=== PATIENT | female | born 1990 | race Caucasian/White ===

== ENCOUNTER 2018-02-17 20:48 | Emergency (ER) | payer OTHER, MEDICAID ==
--- NOTE | 2018-02-17 21:01 | EDPHY ---
H & P Stated Complaint: LEFT FOOT/ANKLE, TRAMPOLINE 6PM Time Seen by Provider: 02/17/18 21:00 HPI/ROS: HPI: This is a 27-year-old female who presents with Chief Complaint: LEFT FOOT/ANKLE, TRAMPOLINE 6PM Location: Left foot ankle Quality: Injury Duration: 3 hr prior to arrival Signs and Symptoms: No bleeding, no radiation, no numbness, no weakness, no tingling, no incontinence, + decreased range of motion, + swelling, + pain, no fever Timing: acute Severity: Moderate Context: Patient reports that she was jumping on the trampoline approximately 3 hr prior to arrival when her left foot hyperextended and curled up underneath her. She reports that she fell directly onto her left foot. She felt popping sensation in the medial ankle but reports pain in the lateral ankle at this time and swelling. She reports that pain is increased with weight-bearing. Prior history of ankle sprains. Denies radiation, weakness, paresthesias. Modifying Factors: None Comment: ROS: A comprehensive 10 system review of systems is otherwise negative aside from elements mentioned in the history of present illness. MEDICAL/SURGICAL/SOCIAL HISTORY: Medical history: depression and anxiety, ADHD, HORMONE HEADACHES, LMP 2-3 weeks ago. Surgical history: Appendectomy Social history: Former smoker. Denies alcohol and drug use. CONSTITUTIONAL: Polite and cooperative young adult white female, awake and alert, no obvious distress HEENT: Atraumatic and normocephalic. NECK: supple EXTREMITIES: 2/2 pulses, strength 5/5, left Ankle: Moderate lateral malleolus swelling; Plantar flexion to 50, dorsiflexion to 20. Foot inversion to 35 degree. No tenderness/swelling Anterior talofibular ligament. Moderate tenderness/swelling Calcaneofibular ligament, no tenderness/swelling posterior talofibular ligament, no tenderness/swelling posterior inferior tibiofibular ligament. Achilles tendon intact. DIP/PIP/MCP flexion/extension intact with good light touch sensation. no deformities, no clubbing, no cyanosis or edema. NEUROLOGICAL: no focal neuro deficits. GCS 15. Light touch sensation intact. SKIN: Warm and dry, no erythema. no rash. Good capillary refill. Source: Patient Exam Limitations: No limitations - Personal History LMP (Females 10-55): 15-21 Days Ago Current Tetanus/Diphtheria Vaccine: Yes - Medical/Surgical History Hx Asthma: No Hx Chronic Respiratory Disease: No Hx Diabetes: No Hx Cardiac Disease: No Hx Renal Disease: No Hx Cirrhosis: No Hx Alcoholism: No Hx HIV/AIDS: No Hx Splenectomy or Spleen Trauma: No Other PMH: hx of depression and anxiety, ADHD, APPY, HORMONE HEADACHES - Social History Smoking Status: Former smoker Constitutional: Initial Vital Signs Temperature (C) 36.5 C 02/17/18 20:53 Heart Rate 99 02/17/18 20:53 Respiratory Rate 18 02/17/18 20:53 Blood Pressure 118/78 02/17/18 20:53 O2 Sat (%) 98 02/17/18 20:53 O2 Delivery Mode Room Air Allergies/Adverse Reactions: codeine Allergy (Verified 02/17/18 20:53) Rash latex Allergy (Verified 02/17/18 20:53) Rash Home Medications: Medication Instructions Recorded Adderall 10 MG (*) 02/17/18 Ativan 02/17/18 oxyCODONE/APAP 5/325 [Percocet 1 - 2 tab PO Q4H PRN #10 tab 02/17/18 5/325 (*)] Medical Decision Making - Diagnostics Imaging Results: Imaging Impressions Ankle X-Ray 02/17/18 21:03 Impression: Essentially undisplaced left lateral malleolar fracture.. Left Foot, 3 Views Clinical Indications: Pain following trauma. Findings: No left foot is negative for fracture.. No periosteal reaction or erosion. No radiopaque foreign body. Joint spaces have normal thickness. Impression: Left foot negative for fracture. Foot X-Ray 02/17/18 21:03 Impression: Essentially undisplaced left lateral malleolar fracture.. Left Foot, 3 Views Clinical Indications: Pain following trauma. Findings: No left foot is negative for fracture.. No periosteal reaction or erosion. No radiopaque foreign body. Joint spaces have normal thickness. Impression: Left foot negative for fracture. Procedures: Procedure: Splint placement. A short-leg posterior/stirrup splint was applied the Emergency Room dental technician instructor. After application of the splint I returned and re-examined the patient. The splint was adequately immobilizing the joint and distal to the splint the patient's circulation and sensation was intact. ED Course/Re-evaluation: Left foot x-ray and the left ankle x-ray ordered Ice pack applied. Left ankle x-ray my read shows minimally displaced distal fibula fracture Placed in short-leg posterior/stirrup Ortho Glass, crutches provided, orthopedic follow-up Percocet prepack given No signs of neurovascular compromise/tenting of skin/compartment syndrome/ extremities and joints examined above and below area of concern and are neurovascularly intact. This patient was seen under the supervision of my secondary supervising physician. I evaluated care for this patient independently. Discussed this patient with Dr. Fernandez. Differential Diagnosis: Ankle injury differential diagnosis includes but is not limited to tibia fracture, fibula fracture, metatarsal fracture, LisFranc fracture, achilles tendon rupture, sprain. - Data Points Medications Given: Discontinued Medications Oxycodone/Acetaminophen (Percocet 5/325mg Prepack#4) 1 btl TAKEHOME EDNOW ONE Stop: 02/17/18 21:14 Last Admin: 02/17/18 21:20 Dose: Not Given Departure - Departure Disposition: Home, Routine, Self-Care Clinical Impression: Closed fracture of distal end of left fibula Qualifiers: Encounter type: initial encounter Fracture morphology: other fracture Qualified Code(s): S82.832A - Other fracture of upper and lower end of left fibula, initial encounter for closed fracture Condition: Good Instructions: Oxycodone/Acetaminophen (By mouth), Ankle Fracture (ED), Crutch Instructions (ED), External Fixation of an Ankle Fracture (DC) Additional Instructions: Keep the splint dry and in place until seen by Orthopedics. Use crutches to aid ambulation. Start with toe-touch weight-bearing status. Take Tylenol 650 mg every 4 hours and/or Ibuprofen 600 mg every 8 hours with food as needed for pain. Use Percocet every 6 hours as needed for severe/break through pain. Do not use Tylenol and Percocet concomitantly. Apply ice for 30 minutes at a time; 2-3 times per day for the next 1-2 days. Follow up with Orthopedics in 5-7 days at which time they will evaluate and recommend with you if conservative management versus surgery is indicated. Return to the ER immediately if you experience new or worsening pain, discoloration, numbness, tingling, or any other symptoms that concern you. Referrals: Lissett Arnold PA [Primary Care Provider] - As per Instructions Ta Tejada MD [Medical Doctor] - As per Instructions Prescriptions: oxyCODONE/APAP 5/325 [Percocet 5/325 (*)] 1 - 2 tab PO Q4H PRN #10 tab PRN Reason: Pain, Severe
[2018-02-17] MEDS ORDERED: OXYCODONE/APAP 5/325MG PREPACK#4 BTL TAKEHOME ONE (21:13)
[2018-02-17 22:08] VITALS: BP 122/80
== END 2018-02-17 22:05 | disposition home or self-care (01) ==
DX: S82.832A Other fracture of upper and lower end of left fibula, initial encounter for closed fracture (principal); F41.8 Other specified anxiety disorders; X58.XXXA Exposure to other specified factors, initial encounter; Y99.9 Unspecified external cause status; Z87.891 Personal history of nicotine dependence

== ENCOUNTER 2018-06-08 00:50 | Inpatient (IN) | payer OTHER, MEDICAID ==
[2018-06-08] MEDS ORDERED: OLANZapine DISINTEGR 5 MG TAB PO PRN (03:28)
[2018-06-08] MEDS ORDERED: MAGNESIUM HYDROXIDE 30 ML UDCUP PO PRN (03:28)
[2018-06-08] MEDS ORDERED: MAG HYDROX/AL HYDROX/SIMETH 30 ML UDCUP PO PRN (03:28)
[2018-06-08] MEDS ORDERED: LORazepam 0.5 MG TAB PO PRN (03:28)
[2018-06-08] MEDS ORDERED: ACETAMINOPHEN 325 MG TAB PO PRN (03:28)
[2018-06-08] MEDS ORDERED: NICOTINE POLACRILEX 2 MG GUM B PRN (03:28)
--- NOTE | 2018-06-08 08:44 | ASMTBHMTP ---
Master Treatment Plan Master Treatment Plan Answers: Mood Instability without for: Psychosis Date: 06/08/2018 Diagnosis on Admission: Bi polar I Expected length of stay: 3-5 Reason for admission: Notes: Per ED report: " 27 y.o. female presented to the ED by EMS for evaluation of "not feeling safe". Pt. was sent here for medical clearance presumably to be sent to inpatient psychiatric care. Was placed on a mental health hold today by her primary psychiatrist after she was despondent and unable to answer questions at P office". Patient's stated presenting problems: Notes: "Mypsychiatristput me on a hold because I didn't respond to questions and she decided that I need to be evaluated. I'm really stressed out". Patient's goals for treatment: Notes: "I want to get stable". Patient's strengths: Notes: "I don't know". Identify supports outside of hospital: Notes: "My mother". Discharge criteria: Notes: Ct. will demonstrate more stable mood by discharge. Initial disposition plan/considerations: Notes: Ct. will participate in groups and unit activities. Master Treatment Plan Required Signatures Psychiatrist signature: Answers: Psychiatrist: RN on-shift signature: Answers: RN: Patient signature: Answers: Patient: Date Signed: 06/08/2018 08:44 AM Electronically Signed By:Serena Childress
--- NOTE | 2018-06-08 08:49 | ASMTCMCOM ---
CM Note CM Note Notes: CC met with ct. to develop MTP. Ct. presented with falt affect. She has been admitted very early this morning and did not sleep much. She denied SI/HI and/or psychosis. She reported that she is under a lot of stress but did not elaborate. She reported that she lives with her daughter in an apartment in [place]. MOC lives in [place] which is where her daughter is now. Ct. receives services at [facility]. She signed ROIs for [facility] and [facility]. Date Signed: 06/08/2018 08:48 AM Electronically Signed By:Serena Childress
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
--- NOTE | 2018-06-08 12:45 | BCON ---
[f rep st] BEHAVIORAL HEALTH CONSULTATION INTERNAL MEDICINE CONSULTATION DATE OF CONSULTATION: 06/08/2018 REFERRING PHYSICIAN: Dr. Alexandra REASON FOR REFERRAL: Medical clearance for inpatient behavioral health stay. HISTORY OF PRESENT ILLNESS: This patient presented to an outside emergency department referred from [facility] for anxiety and not feeling that she could be safe at home. She was evaluated by the mental health team and transferred to [facility] for inpatient psychiatry. She currently complains of feeling tired. PAST MEDICAL HISTORY: 1. Left ankle fracture in January. 2. Psychiatric issues with diagnoses of ADHD, anxiety, and bipolar disorder. 3. Polysubstance abuse including methamphetamine and heroin addiction 4-5 years ago. PAST SURGICAL HISTORY: She denies any history of surgeries. MEDICATIONS: Prior to admission, she was taking control pill. ALLERGIES: Listed to bupropion, codeine, and latex. SOCIAL HISTORY: I believe she is living with roommates. She is a smoker. She uses marijuana. She has a 3-year-old daughter who is currently with the patient 's mother. She has worked as a [employer]. FAMILY HISTORY: Noncontributory. REVIEW OF SYSTEMS: She reports fatigue and left ankle pain. She is able to ambulate and the ankle pain is not limiting. She denies recent weight change, fevers, chills, cough, dyspnea, nausea, vomiting, constipation, or diarrhea, dysuria, or urinary frequency, and otherwise, a 10-point review of systems is negative. PHYSICAL EXAM: VITALS: From approximately 2 o'clock this morning, blood pressure was 105/66, heart rate was 63, respiratory rate was 16, oxygen saturation was 97% on room air. Temperature was 36.9 degrees centigrade. Her weight is 56.7 kg for a body mass index of 22.9. GENERAL: This is a well- nourished, well-developed woman lying in bed, dressed in street clothes, sits up for the exam, cooperative, and in no acute distress. HEENT: Extraocular movements are intact. Pupils are equal, round, and reactive to light. Mucous members are moist. Dentition is in good condition. NECK: Supple. HEART: There is a regular rate and rhythm with no murmurs, rubs, or gallops. She has normal respiratory variation of heart rate. LUNGS: Clear to auscultation bilaterally. ABDOMEN: Benign. EXTREMITIES: There is no cyanosis, clubbing, or edema. Left ankle is nontender and has normal range of motion. NEUROLOGIC: She is alert and oriented x3. She has a flat affect. Cranial nerves 2 through 12 are grossly intact. There is no focal weakness and sensation is intact to light touch. SKIN: She has multiple comedones on her face, more so on the right side than the left. LABORATORY STUDIES: Reviewed from outside hospital. CBC was mostly normal with a slight elevation of hematocrit of no clinical significance. Basic metabolic profile was normal. TSH was normal. Urine drug screen was positive for marijuana but otherwise negative for substances of abuse. ASSESSMENT AND RECOMMENDATIONS: 1. Mental health issues. Pending further evaluation and management per Psychiatry and the mental health team. 2. Tobacco dependence syndrome. She was encouraged to quit smoking. 3. Acne vulgaris. She reports that she was on a testosterone sara for a few days per her primary care physician but did not continue. She has tried some topicals, but nothing works. The acne is worse in recent days to weeks. There is no indication for any specific treatment at present, but she can follow up with primary care to either continue a testosterone sara and/or have trials of other topical preparations. Her acne is not severe and should respond to usual topicals. 4. Left ankle pain with history of fracture. It is not limiting in any way. She reports she did not see an orthopedic surgeon but was managed by her primary care doctor. I see no medical contraindications to this patient's continued stay on the inpatient behavioral health unit or to any psychiatric medications or procedures. Thank you very much for including me in the care of this patient and please do not hesitate to contact me or the hospitalist service should there be need for further medical evaluation. /[id number]/MODL MTDD
[2018-06-08] MEDS ORDERED: LURASIDONE HCL 20 MG TAB PO SCH (18:00)
[2018-06-08] MEDS ORDERED: OLANZapine DISINTEGR 10 MG TAB PO SCH (21:00)
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
--- NOTE | 2018-06-09 15:32 | ASMTCMCOM ---
CM Note CM Note Notes: Pt. prefers to be call "Mayuri". Pt. reports feeling "okay". Pt. stated she slept "fine". Pt. reports getting enough to eat and attending groups. Pt. stated she is not currently taking any medications. Pt. reports no issues while on the unit. Pt. stated she wants to "come up with a plan for when I leave" adding she is unsure where she will go and what to tell her work. Pt. stated she would like to return to her apartment, but is not sure if she can return. Pt. stated she would like a doctor's note to excuse her from missing work. Pt. reports she works Monday at 9:30am and wants to be discharge as soon as possible. Pt. stated she sees Dr. Velazquez and has an appointment on 06/25/18, but is unsure of the time of the appointment. Pt. denied SI, HI, AVH and paranoia. Pt. presents as alert, sitting in bed, passive, flat, guarded, fair eye contact, and cooperative. Staff report pt. sleeping 7.5 hours last night, refusing her zyprexa and eating only 25% of one meal on Monday. Pt. signed ROIs for MOC and MHP. CC to attempt to confirm and move up pt' provider appointment. Pt. may potentially discharge tomorrow without CC securing follow up appointment. Date Signed: 06/09/2018 03:32 PM Electronically Signed By:Marine Henning
--- NOTE | 2018-06-09 16:34 | ASMTCMCOM ---
CM Note CM Note Notes: CC made a CPS report based on pt's M1 hold. Date Signed: 06/09/2018 04:34 PM Electronically Signed By:Marine Henning
--- NOTE | 2018-06-09 16:35 | ASMTBHFAM ---
Notes Note: Notes: CC spoke with MOC about pt. potentially discharging tomorrow. MOC stated pt "better at the moment, but no functioning well". MOC stated pt. "hasn't been functioning well for four months". CC asked about pt baseline, to which MOC stated pt. is "really far from where she is normally". MOC stated pt. is "increadiably depressed. Not capable". MOC stated she is concerned pt has been "missed diagnosed with ADHD meds". MOC stated she is "positive she was abusing Adderall". MOC stated pt is "manipulating psychiatrist [Marcus]". MOC stated she would like to have a plan in place for pt's discharge. MOC stated pt's mental health providers approach "was not working". MOC stated she "can't keep supporting her". CC asked MOC if pt. would be allowed to stay with [facility] if pt was taking medications, MOC stated "lot of distrust right now of stuff she's done". MOC stated she is very concerned about pt. returning to smoking weed. [facility] agreed to come to a family meeting on Monday06/10/18 at 1:30pm Date Signed: 06/09/2018 04:34 PM Electronically Signed By:Marine Henning
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
[2018-06-09] MEDS ORDERED: RISPERIDONE ODT 0.5 MG TAB SL SCH (21:00)
[2018-06-10 06:53] VITALS: BP 116/63
--- NOTE | 2018-06-10 14:32 | ASMTBHDC ---
Notes Note: Notes: Pt. reports feeling "good, groggy". Pt. stated she slept "pretty hard". Pt. reports taking Zyprexa last night, adding it was "fine". Pt. stated she would like a prescription for Zyprexa. Pt. reports not taking Risperdal stating "gave me nightmares", and that she last took it a week ago. Pt. reports getting enough to eat and attending groups. Pt. reports no issues while on the unit. Pt. stated she will "maybe" pursue medication changes outpatient. Pt. stated she would like to discharge today and agreed to attend a family meeting at 1:30pm. Pt. stated she feels safe returning home. Pt. stated she feels she can care for her child. Pt. stated she is able to get to her follow up appointments. Pt. reports willing to fill and take her medications as prescribed, CC provided a discount card and coupons for pt's medication. Pt. stated she doesn't have a coat or shoes, CC will call [facility] [place] some. Pt. requested information on local support groups. Pt. stated she does have a alcoholics anonymous book and is able to located recovery support groups. Pt. denied SI, HI, AVH and paranoia. Pt. presents as alert, calm, guarded, somewhat passive at times, soft spoken, fair eye contact, and cooperative. Staff report pt. sleeping 7 hours and taking Zyprexa last night. CC reached out and requested [facility] to contact pt directly with next available follow up appointment. CC provided local support groups and additional resources available at [facility]. Date Signed: 06/10/2018 02:32 PM Electronically Signed By:Marine Henning
[2018-06-10] MEDS ORDERED: OLANZapine 5 MG TAB PO SCH (21:00)
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
== END 2018-06-10 14:45 | disposition home or self-care (01) | DRG 897 ==
LOC: BBEH 00:50
PROVIDERS: ADMIT Psychiatry & Neurology Behavioral Neurology & Neuropsychiatry; ATTEND Psychiatry & Neurology Psychiatry
DX: F12.988 Cannabis use, unspecified with other cannabis-induced disorder (principal); F31.81 Bipolar II disorder; F17.210 Nicotine dependence, cigarettes, uncomplicated; Z87.81 Personal history of (healed) traumatic fracture; L70.0 Acne vulgaris

== ENCOUNTER 2018-06-13 19:38 | Inpatient (IN) | payer OTHER ==
--- NOTE | 2018-06-13 21:03 | EDPHY ---
H & P Smoking Status: Current every day smoker Time Seen by Provider: 06/13/18 20:05 HPI/ROS: HPI Anxiety. 27-year-old female by private vehicle with her mother. She presents the emergency department stating that she is feeling very anxious. She is requesting behavioral health evaluation. She is not suicidal. She does have a recent admission to [facility]. Please see past medical history below for further details. ROS: Constitutional: No fever, no chills. As above. Eyes: No discharge. No changes in vision. ENT: No sore throat. No nasal congestion or rhinorrhea. Respiratory: No cough. No shortness of breath. Cardiac: No chest pain, no palpitations. Gastrointestinal: No abdominal pain, no vomiting, no diarrhea. Genitourinary: No hematuria. No dysuria or increased frequency with urination. Musculoskeletal: No back pain. No neck pain. No myalgias or arthralgias. Skin: No rashes. Neurological: No headache. No focal weakness or altered sensation. Past medical history: Substance abuse mood disorder, cannabis abuse disorder, stimulant use disorder, opiate use disorder, bipolar, PTSD, depression, attention deficit hyperactivity disorder, history of seizures from Wellbutrin. Social history: She is currently here with her mother. Denies alcohol tonight. Denies IV drugs or street drug use tonight. Physical Exam: General Appearance: Alert, flat depressed affect. This patient is responding to questions appropriately and in full sentences. This patient appears well- hydrated and well-nourished. Head: Normocephalic atraumatic. Eyes: Pupils equal and round no pallor or injection. No lid edema, erythema or injection. Respiratory: There are no retractions, lungs are clear to auscultation with good air movement bilaterally. Cardiovascular: Regular rate and rhythm. No murmur. Gastrointestinal: Abdomen is soft and nontender, no masses, bowel sounds normal. No focal tenderness at McBurney's point. No Whitt sign. Neurological: Motor sensory function is grossly intact. Cranial nerves are normal. Gait is normal. Skin: Warm and dry, no rashes. Musculoskeletal: Neck is supple and nontender. Extremities are symmetrical. All joints range without pain or impingement. Psychiatric: No agitation. No depression. Database: EKG: Imaging: Procedures: Emergency department course: Triage vital signs reviewed and are normal. After my evaluation I had [facility] interview the patient. They feel the patient does need to be on a detainer and formally evaluated. She was placed on a detainer. Appropriate blood work and urine tox screens ordered as requested by [facility]. They will evaluate her after review of blood work and tox screens and decide if the patient requires being put on an M1 hold and being admitted. 9:00 p.m., care turned over to Dr. Sukhwinder Roy. Patient awaiting behavioral health evaluation. Differential Diagnosis: The differential diagnosis on this patient includes but is not limited to anxiety reaction, situational depression, major depression, substance abuse. This represents a partial list of diagnoses considered. These considerations are based on history, physical exam, past history, reassessment and diagnostic testing. (Jarrod Mclaughlin) Constitutional: Initial Vital Signs Temperature (C) 36.5 C 06/13/18 19:45 Heart Rate 93 06/13/18 19:45 Respiratory Rate 16 06/13/18 19:45 Blood Pressure 135/85 H 06/13/18 19:45 O2 Sat (%) 97 06/13/18 19:45 O2 Delivery Mode Room Air Allergies/Adverse Reactions: bupropion Allergy (Verified 06/08/18 01:12) seizures codeine Allergy (Verified 02/17/18 20:53) Rash latex Allergy (Verified 02/17/18 20:53) Rash Home Medications: Medication Instructions Recorded Albuterol Sulfate [Proair Hfa] 1 - 2 puffs IH PRN PRN 06/08/18 Spironolactone [Aldactone] 50 mg PO DAILY 06/08/18 OLANZapine [OLANZapine (*)] 5 mg PO HS 30 Days tab 06/10/18 Zyprexa 06/13/18 Medical Decision Making ED Course/Re-evaluation: Patient has been evaluated mental health and accepted for inpatient admission at . (Sukhwinder Roy) - Data Points Laboratory Results: Laboratory Results 06/13/18 20:57 06/13/18 20:57 06/13/18 06/13/18 06/13/18 21:04 20:57 20:57 WBC RBC Hgb Hct MCV MCH MCHC RDW Plt Count MPV Neut % (Auto) Lymph % (Auto) [place] % (Auto) Eos % (Auto) Baso % (Auto) Nucleat RBC Rel Count Absolute Neuts (auto) Absolute Lymphs (auto) Absolute Monos (auto) Absolute Eos (auto) Absolute Basos (auto) Absolute Nucleated RBC Immature Gran % Immature Gran # Sodium 139 mEq/L mEq/L (135-145) Potassium 3.9 mEq/L mEq/L (3.5-5.2) Chloride 103 mEq/L mEq/L (97-110) Carbon Dioxide 24 mEq/l mEq/l (22-31) Anion Gap 12 mEq/L mEq/L (6-14) BUN 11 mg/dL mg/dL (7-23) Creatinine 0.7 mg/dL mg/dL (0.6-1.0) Estimated GFR > 60 Glucose 91 mg/dL mg/dL (70-100) Calcium 9.9 mg/dL mg/dL (8.5-10.4) Beta HCG, Qual NEGATIVE Urine Opiates Screen NEGATIVE (NEGATIVE) Urine Barbiturates NEGATIVE (NEGATIVE) Ur Phencyclidine Scrn NEGATIVE (NEGATIVE) Ur Amphetamine Screen NEGATIVE (NEGATIVE) U Benzodiazepines Scrn NEGATIVE (NEGATIVE) Urine Cocaine Screen NEGATIVE (NEGATIVE) U Marijuana (THC) Screen NON-NEGATIVE H (NEGATIVE) Ethyl Alcohol < 10 mg/dL mg/dL (0-10) 06/13/18 20:57 WBC 11.30 10^3/uL H 10^3/uL (3.80-9.50) RBC 5.05 10^6/uL 10^6/uL (4.18-5.33) Hgb 16.0 g/dL g/dL (12.6-16.3) Hct 47.8 % H % (38.0-47.0) MCV 94.7 fL fL (81.5-99.8) MCH 31.7 pg pg (27.9-34.1) MCHC 33.5 g/dL g/dL (32.4-36.7) RDW 12.8 % % (11.5-15.2) Plt Count 182 10^3/uL 10^3/uL (150-400) MPV 12.2 fL H fL (8.7-11.7) Neut % (Auto) 75.1 % H % (39.3-74.2) Lymph % (Auto) 16.5 % % (15.0-45.0) [place] % (Auto) 7.4 % % (4.5-13.0) Eos % (Auto) 0.4 % L % (0.6-7.6) Baso % (Auto) 0.4 % % (0.3-1.7) Nucleat RBC Rel Count 0.0 % % (0.0-0.2) Absolute Neuts (auto) 8.49 10^3/uL H 10^3/uL (1.70-6.50) Absolute Lymphs (auto) 1.87 10^3/uL 10^3/uL (1.00-3.00) Absolute Monos (auto) 0.84 10^3/uL H 10^3/uL (0.30-0.80) Absolute Eos (auto) 0.04 10^3/uL 10^3/uL (0.03-0.40) Absolute Basos (auto) 0.04 10^3/uL 10^3/uL (0.02-0.10) Absolute Nucleated RBC 0.00 10^3/uL 10^3/uL (0-0.01) Immature Gran % 0.2 % % (0.0-1.1) Immature Gran # 0.02 10^3/uL 10^3/uL (0.00-0.10) Sodium Potassium Chloride Carbon Dioxide Anion Gap BUN Creatinine Estimated GFR Glucose Calcium Beta HCG, Qual Urine Opiates Screen Urine Barbiturates Ur Phencyclidine Scrn Ur Amphetamine Screen U Benzodiazepines Scrn Urine Cocaine Screen U Marijuana (THC) Screen Ethyl Alcohol Departure - Departure Disposition: [facility] IP Clinical Impression: Anxiety Condition: Fair Referrals: Lissett Arnold PA [Primary Care Provider] - As per Instructions
[2018-06-13 21:12] LABS: PLATELET COUNT 182 10^3/uL (150-400)
--- NOTE | 2018-06-13 23:11 | ASMTTCLDSP ---
[facility] Discharge Disposition Disposition: Answers: Admit Discharge Concerns/Recommendations: Notes: In consultation with [facility] ED physician,Dr Roy and on-call psychiatrist,Dr Colby, both concurred that Pt does appear to meet 27-65 criteria requiring psychiatric hospitalization as Pt does appear to be an imminent risk of harm to self/others/due to grave disability due to a mental illness condition. Pt was read the Patient Rights and Responsibilities Statement on 06/13/2018 at 22:20, original placed in chart and copy given to pt. Was patient given the Answers: Yes Inpatient Behavioral Health Prohibited Belongings List while in the ED? For inpatient Dr Colby admission, the following psychiatrist agreed to accept patient for admission to Behavioral Health ([facility]): Type of Hold: Answers: M1/72-hour Hold Hold initiated by: Answers: Other Notes: [facility] clinician Date Signed: 06/13/2018 11:11 PM Electronically Signed By:Beatrice Reveles
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
[2018-06-13] MEDS ORDERED: ACETAMINOPHEN 325 MG TAB ONE (23:31)
[2018-06-13] MEDS ORDERED: LORazepam 0.5 MG TAB PO PRN (23:33)
[2018-06-13] MEDS ORDERED: MAGNESIUM HYDROXIDE 30 ML UDCUP PO PRN (23:33)
[2018-06-13] MEDS ORDERED: MAG HYDROX/AL HYDROX/SIMETH 30 ML UDCUP PO PRN (23:33)
[2018-06-13] MEDS ORDERED: NICOTINE POLACRILEX 2 MG GUM B PRN (23:33)
[2018-06-13] MEDS ORDERED: OLANZapine 10 MG TAB PO PRN (23:34)
[2018-06-13] MEDS: ACETAMINOPHEN 325 MG TAB PO PRN (23:36)
--- NOTE | 2018-06-14 07:51 | ASMTBHMTP ---
Master Treatment Plan Master Treatment Plan Answers: Mood Instability with for: Psychosis Date: 06/13/2018 Diagnosis on Admission: Bipolar I Disorder, current or most recent episode depressed, severe 296.53 (F31.4) Expected length of stay: 3-5 days Reason for admission: Notes: Per Report: Pt is a 27 y/o female who arrived at the ED by private vehicle with her mother. Per ED physician's report she arrived at the ED stating that she is feeling very anxious. She was d/cate from [facility] behavioral unit 06/10/2018 and is asking for a behavioral health evaluation. [facility] cl[facility] met with pt and her mother and placed pt on a M1 hold for grave disability. Per M1 hold, Pt presented requesting MH evaluation. D/C from N 06/10. Family indicated pt exhibiting difficulty functioning. Pt presents as paranoid, possibly responding to internal stimuli. Pt appears gravely disabled in need of inpt hospitalization due to mental health illness". Pt had been admitted to [facility]'s behavioral unit on 06/08/2018; she had been placed on an M! hold for grave disability by her psychiatrist, Dr Velazquez after being seen for an appointment. At that time the pt presented as paranoid, scared and exhibited a decreased ability to care for herself and her daughter. She was suspicious of her roomate, expressed delusions, had a decreased need for sleep and was self-medicating with cannabis. Per Admission Psychiatric assessment, pt reported past diagnosis of bipolar disorder, PTSD and ADHD. She reports a hx of hospitalizations related to substance abuse and rehabilitation. She denied any hx of suicide attempts or self-injurious behaviors. Her reported and observed symptoms led the rn orthopedic to diagnose her with bipolar disorder, severe, most recent episode manic. t's expected length of stay was 5-7 days. Pt's M1 on 06/10/2018; it was recommended by the psychiatrist that she remain in the hospital while medication continued to take effect, to monitor haow much it helps her and to make sure there are no untoward side effects. Pt declined further hospitalization. She was d/cate with a follow-up appt with Dr Velazquez on 06/25/2018 and with CM and therapist Anastasia Sanderson in June. Upon d/c she was given a diagnosis of substance induced mood disorder and a rule out for bipolar disorder, depressed type. Patient's stated presenting problems: Notes: "because I had to admit to myself that I wasn't doing well." Patient's goals for treatment: Notes: "get a dignosis and be stable." Patient's strengths: Notes: None really Identify supports outside of hospital: Notes: My family living in [place], [place] Discharge criteria: Notes: Patient will demonstrate more stable mood by discharge.* Initial disposition plan/considerations: Notes: Return to my apartment.* Master Treatment Plan Required Signatures Psychiatrist signature: Answers: Psychiatrist: RN on-shift signature: Answers: RN: Patient signature: Answers: Patient: Date Signed: 06/14/2018 07:51 AM Electronically Signed By:Hermelindo Bruner
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
--- NOTE | 2018-06-14 14:53 | ASMTCMCOM ---
CM Note CM Note Notes: Client participated in treatment team meeting. Client appears guarded, mostly non-verbal, poor eye contact, unclean, disorganized/blocked thinking. Report noted profound Marijuana usage, based on her levels. Client is open to [facility], signed release. CC sent over her clinical ppw to [facility]. Client refused to sign MTP or any other ppw. Client presents as disorganized, affect is blunted with limited or no insight/judegement. Date Signed: 06/14/2018 02:52 PM Electronically Signed By:Hermelindo Bruner
[2018-06-14] MEDS: OLANZapine DISINTEGR 5 MG TAB PO SCH (20:16)
--- NOTE | 2018-06-15 08:04 | SOAPPROG ---
SOAP Progress Note Assessment/Plan: Assessment: Cannabis-Induced psychosis, mood disorder. Cannabis Use Disorder, Severe. R/O Bipolar Disorder. Improvement noted (see subjective/objective note). Patient could benefit from continued inpatient hospitalization for safety, crisis stabilization, and medication evaluation. Plan: 1. Psychotropic medications: After reviewing options, risks, and benefits patient agrees to continue current medications. No medication changes at this time as more time is needed to determine ongoing tolerability and efficacy. Plan is to continue to observe patient for response and side effects from medications, and ongoing monitoring and evaluation. 2. Review with patient informed consent and recommendations for psychotropic medication treatment listed below 3. Labs: no additional labs at this time 4. Therapy: continue milieu and group therapy 5. Further investigation including gathering information from patients relatives and review of past case records to inform treatment plan. 6. Safety/Wellness plan and follow-up outpatient appointments to be established prior to discharge. Next steps are for patient to meet with care aide to plan a safe discharge plan and establish outpatient services for ongoing treatment. 7. Confer with inpatient treatment team regarding treatment plan. 8. Psychosocial stressors addressed through director case management 9. Legal status: M1 10. Consider discharge tomorrow if patient is in stable condition, safe, and has a safe discharge plan. PSYCHOTROPIC MEDICATION TREATMENT INFORMED CONSENT and RECOMMENDATIONS: Review nature of condition, diagnosis, and prognosis. Review nature and purpose of psychotropic medication treatment. Review type of psychotropic medications being ordered. Review risk and benefits of psychotropic medication treatment. Review probable length of time patient will need to take medications. Review risk and benefits of not undergoing psychotropic medication treatment. Review alternative treatments to psychotropic medications. Review psychotropic medications contraindications, drug-drug interactions, side effects, and importance of reporting any side effects to a psychiatric provider or nurse during inpatient hospitalization, and upon discharge to patients psychiatric outpatient provider, primary care provider, or other health manager primary care. Review importance of asking a nurse, psychiatric provider, or primary care provider any questions or problems concerning the psychotropic medications. Verify patient understands the information that has been provided, and understands, accepts, and agrees to psychotropic medications. Review patients safety plan and importance of patient to report to staff while hospitalized if patient is ever a danger to self/others, or unable to care for self, and upon discharge, the importance for patient to contact [facility] or [facility], or go to the nearest emergency room, if patient is ever a danger to self/others, or unable to care for self. Recommend that upon discharge patient establish medication management treatment with a psychiatric provider, establishes routine therapy appointments, and follow-up with primary care provider. Verify patient understands and agrees to these recommendations. 06/15/18 08:02 Subjective: Following up with patient for evaluation of psychosis and safety. Patient states, "I don't know. I feel kind of tired." Patient reports no side effects from current medications, and agrees to continue current medications. Objective: Vital Signs Temp Pulse Resp BP Pulse Ox 36.9 C 57 L 14 122/58 H 96 06/15/18 06:00 06/15/18 06:00 06/15/18 06:00 06/15/18 06:00 06/15/18 06:00 NURSING REPORT: Consulted with nursing for update on patients progress in treatment. Nurses report patient is not engaged in treatment, is attending some groups; slept 8 hours; expresses the following psychiatric symptoms: anxious; exhibits the following psychiatric symptoms: anxious; is agreeable to medications as prescribed with no report of side effects, with no s/s of EPS/ akathisia, and denies SI/HI, denies A/V hallucinations, and denies delusions. SUBSTANCE ABUSE BRIEF INTERVENTION: Brief intervention regarding the risks of cannabis abuse is provided to patient with goal to reduce the risk of harm that could result from the continued use of cannabis, with the general aim to investigate the problem, raise awareness of problem, develop a solution with the patient, recommend a specific change or activity, and motivate the patient toward change. Assess substance abuse behavior and give supportive advice about harm reduction, recommend a reduction in hazardous/at-risk consumption patterns, and facilitate referrals for additional specialized treatment with youth care professional. Intermediate goal is for the patient to quit and attend outpatient substance abuse treatment. Intervention focus on intermediate goals to allow for more immediate success in the treatment process to keep the patient motivated. Review following with patient: Cannabis use risks: Short- term use: impaired short-term memory, impaired motor coordination, altered judgement, in high doses paranoia and psychosis. Long-term use addiction, diminished life satisfaction and achievement, symptoms of chronic bronchitis, and increased risk of chronic psychosis disorders if predisposition to such disorders. In withdrawal anger, aggression irritability, anxiety and nervousness, decreased appetite or weight loss, restlessness, and sleep difficulties with strange dreams. OUTPATIENT SUBSTANCE ABUSE TREATMENT: Patient referred to outpatient provider and treatment for continued treatment related to substance abuse. MSE: The patient is a well-nourished female looking stated chronological age. Attire is appropriate dress is hospital garb. Grooming status is appropriate. Ambulation is independent. Gait is normal and coordinated. Posture is normal. Eye contact is appropriate. Motor activity is appropriate with purposeful, organized, coordinated movements; with no involuntary movements. Attitude is cooperative. Patient appears attentive and relates well to this interviewer. Language production is spontaneous. R/R/V normal. Articulation is clear, tone is soft and quiet. Patient reports mood as okay with congruent affect. Patients thought process is linear and logical with no signs of formal thought disorder. Patient answering interview questions appropriately; lucid compared to intake interview yesterday. Patient does not report suicidal/homicidal thoughts, ideas, or plans. Patient denies auditory, visual hallucinations. Patient denies delusions. Patient does not appear to be attending to internal stimuli. Patients attention and concentration are fair. Patient is oriented to person, place, time. Patients insight is poor. Patients judgment is poor. - Time Spent With Patient Time Spent With Patient: 15 minutes, met with patient individually. - Pending Discharge Pending Discharge Within 24 Hours: No Pending Discharge Within 48 Hours: No ICD10 Worksheet Patient Problems: Problems Problem Status Onset Anxiety Acute Delivery normal Acute Normal labor Acute Amphetamine use disorder, severe Chronic Cannabis use disorder, severe, dependence Chronic
--- NOTE | 2018-06-15 14:15 | ASMTCMCOM ---
CM Note CM Note Notes: Pt. reports feeling "fine". Pt. reports sleeping "not very good" adding she was "sweaty". Pt. stated she has "been sleeping too much". Pt. reports getting enough to eat and attending "all" groups. Pt. stated her medications "might be making me feel tired". Pt. stated she is "ashamed can't go outside", adding she could use "some vitamin D". Pt. reports thinking she is "getting sick". Pt. denied SI, HI, and AVH. Pt. reports "a little" paranoia, about "like to not be stuck in the hospital, want a better plan". Pt. reports seeing Dr. Velazquez, Anastasia Florence, and Karuna Gold with [facility]. Pt. asked to speak with CC later in the day. Pt. asked about moving up her appointments to a sooner date. Pt. stated Zyprexa "makes me tired", adding " a little" thought slowing. Pt. reports needing "help with daily living" and asked about help getting on disability. Pt. shared wanting to plan more fun things with her daughter. Pt. reports lack of motivation as her current issue. Pt. reports her PCP as Lissett Kimble at [facility]. Pt. presents as alert, nervous, guarded, some eye contact, unkempt, and cooperative. Staff report pt. sleeping 9 hours and being medication compliant. CC updated pt's follow up appointments to: [facility] [address] Velazquez - Monday June 18, 2018 (06/18/18) at 2:00pm Next Appointment with Anastasia Sanderson - Monday June 25, 2018 (06/25/18) @ 9:00am. Will set up with a case sealer (Other services though [facility] include: children, family and home based services, addiction recovery services, psychoeducations, life skills training, life goals collaborative care, peer support and health and wellness coaching.) Date Signed: 06/15/2018 02:15 PM Electronically Signed By:Marine Henning
[2018-06-15] MEDS: OLANZapine DISINTEGR 5 MG TAB PO SCH (20:27)
--- NOTE | 2018-06-16 14:42 | ASMTBHDC ---
Notes Note: Notes: Pt. reports feeling "really tired". Pt. reports taking her Zyprexa last night. Pt. stated she slept "pretty hard". PT. reports getting enough to eat and attending "all" groups. Pt. reports her medication making her tired. PT. stated she is "trying to come up with a plan for when I leave". PT. stated she is willing to continue working with Anastasia and Dr. Velazquez with [facility]. Pt. reports she graduated from the [employer] ([employer]). PT. reports she doesn't work Monday and is unsure when she works next. Pt. shared she struggles with daily living, CC ask pt what specifically she struggles with, pt. was unable to elaborate what she is struggling with. Pt. 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 Pt. reports she "sometimes" struggles to get food. Pt. stated she would like to return to her apartment, today if possible. Pt. reports her mother watching her 3 year old daughter, Lisa. Pt. denied SI, HI, AVH and paranoia. Pt. presents as semi-alert, calm, guarded, lacking insight, unkempt, minimal eye contact, and mostly cooperative. Pt. follow [facility] plan: [facility] [address] Velazquez - Monday June 18, 2018 (06/18/18) at 2:00pm Next Appointment with Anastasia Sanderson - Monday June 25, 2018 (06/25/18) @ 9:00am. Will set up with a case management specialist (Other services though [facility] include: children, family and home based services, addiction recovery services, psychoeducations, life skills training, life goals collaborative care, peer support and health and wellness coaching.) Date Signed: 06/16/2018 02:42 PM Electronically Signed By:Marine Henning
--- NOTE | 2018-06-16 17:21 | SOAPPROG ---
SOAP Progress Note Assessment/Plan: Assessment: Per Alton Andino's most recent note: Cannabis-Induced psychosis, mood disorder. Cannabis Use Disorder, Severe. R/O Bipolar Disorder. Improvement noted (see subjective/objective note). Patient could benefit from continued inpatient hospitalization for safety, crisis stabilization, and medication evaluation. Plan: 1. Psychotropic medications: After reviewing options, risks, and benefits patient agrees to continue current medications. No medication changes at this time as more time is needed to determine ongoing tolerability and efficacy. Plan is to continue to observe patient for response and side effects from medications, and ongoing monitoring and evaluation. Plan: 06/16/18 17:15 1. Patient reports she feels tired and sedated from Olanzapine, but denies any other SE's. 2. Patient demonstrates little insight or awareness of her mental health problems. 3. Given this is patient's second admission in 1 week for same symptoms and she was not compliant with treatment after last discharge, will place on [facility] since she is not willing to accept voluntary treatment. 4. [facility] Subjective: Patient says she is feeling "tired" and "groggy." This is likely from Olanzapine , though patient is on low dose. When MD inquires what patient thinks needs to happen this time for her to stay safe and not require return to ED, she has no idea. Patient's MOC wants her to receive wraparound services through [facility]. However, MD and CC have emphasized to MOC that patient has to go to her outpatient appointments with Dr. Velazquez and her CM, Anastasia, before they can assist her with more intensive services. The types of services [facility] is requesting , such as help with enrolling in TANF, completing disability application, and getting assistance with rent from [facility], are not services that the hospital, MD or CC can provide. Objective: Vital Signs Temp Pulse Resp BP Pulse Ox 36.4 C 56 L 14 119/53 L 96 06/16/18 06:00 06/16/18 06:00 06/16/18 06:00 06/16/18 06:00 06/16/18 06:00 MSE: Affect: Flat Mood: "Tired" TP: Goal-directed TC: Denies any SI/HI, no delusions Insight/Judgment: Poor a/e/b patient's second hospitalization in a week - Time Spent With Patient Time Spent With Patient: 15" - Pending Discharge Pending Discharge Within 24 Hours: No Pending Discharge Within 48 Hours: No ICD10 Worksheet Patient Problems: Problems Problem Status Onset Anxiety Acute Cannabis use disorder, severe, dependence Acute Substance-induced psychotic disorder Acute Delivery normal Acute Normal labor Acute Amphetamine use disorder, severe Chronic
[2018-06-16] MEDS: ACETAMINOPHEN 325 MG TAB PO PRN (18:04)
[2018-06-16] MEDS: OLANZapine DISINTEGR 5 MG TAB PO SCH (20:06)
--- NOTE | 2018-06-17 12:46 | ASMTBHFAM ---
Notes Note: Notes: CC spoke with DCConcha Jimena ([phone]) MOC stated she needs to know if pt. will be returning to her work today, to inform pt's work. MOC stated pt.'s thinking and speech changed while in the hospital, becoming "more articulate". MOC stated when pt. smokes THC she becomes "catatonic" and "can't talk". MOC stated she secretly recorded the pt after her last discharge. MOC reports after her discharge pt. was yelling, "throwing things and breaking things" in her home, [place] didn't allow pt to see her daughter due to her behavior MOC reports pt.'s home is " a mess". MOC reports pt. "was doing something while out, adding most likely it was THC. MOC reports pt. wrote down that people are watching her, then destroyed the paper out of fear. MOC reports she thought pt had not yet meet her therapist Anastasia. MOC reports getting "different information from her". MOC stated pt. revoked mom's KALEN with [facility] because MOC spoke with pt's MD. MOC stated she would like to have family therapy with the pt. MOC stated she is not comfortable with Lisa (pt's daughter) returning home with pt. MOC stated pt may benefit form having some time to focus on herself. MOC reports CPS was called on pt. [facility] disagrees with what pt reports she is struggling with, reporting MOC and OC often give pt. food. MOC stated pt. struggles with managing money and time. MOC report pt. 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 MOC stated she and grandma pay pt's bills. MOC stated "Mayuri's lying about everything...to everybody". Date Signed: 06/17/2018 12:45 PM Electronically Signed By:Marine Henning
--- NOTE | 2018-06-17 15:33 | ASMTCMCOM ---
CM Note CM Note Notes: Pt. reports "want to leave" and feeling "cold and tired". Pt. reports sleeping "okay". Pt. reports she "feel fine". Pt. stated she "doesn't like taking it" about her medications. Pt. reports her medication "making me tired". Pt. stated she "went to all" of the groups. Pt. reports no issues while on the unit. Pt. stated her mother could pick her up st discharge. Pt. stated she can make it to her follow up appointments. Pt. asked CC to change the time of her appointment with Anastasia from 9am to 1pm. Pt. stated she does not want to be on a STC. Pt. denied SI, HI, AVH and paranoia. Pt. presents as alert, calm, guarded, suspicious, good eye contact, unkempt, and cooperative. Staff report pt. sleeping 9 hours and being medication compliant. Per MD CC to move appointment with Dr. Velazquez to a later date. Date Signed: 06/17/2018 03:32 PM Electronically Signed By:Marine Henning
--- NOTE | 2018-06-17 16:08 | SOAPPROG ---
SOAP Progress Note Assessment/Plan: Assessment: Per Alton Andino's most recent note: Cannabis-Induced psychosis, mood disorder. Cannabis Use Disorder, Severe. R/O Bipolar Disorder. Improvement noted (see subjective/objective note). Patient could benefit from continued inpatient hospitalization for safety, crisis stabilization, and medication evaluation. Plan: 1. Psychotropic medications: After reviewing options, risks, and benefits patient agrees to continue current medications. No medication changes at this time as more time is needed to determine ongoing tolerability and efficacy. Plan is to continue to observe patient for response and side effects from medications, and ongoing monitoring and evaluation. Plan: 06/16/18 17:15 1. Patient reports she feels tired and sedated from Olanzapine, but denies any other SE's. 2. Patient demonstrates little insight or awareness of her mental health problems. 3. Given this is patient's second admission in 1 week for same symptoms and she was not compliant with treatment after last discharge, will place on [facility] since she is not willing to accept voluntary treatment. 4. [facility] 06/17/18 16:01 1. Patient continues to report feeling "tired" from Olanzapine, but agrees to keep taking it. 2. Patient expresses paranoid delusions, claiming staff are videotaping her in her room and recording her phone conversations. 3. [facility] reports patient was extremely labile this week, arguing and yelling with MOC and breaking things in her home. 4. 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 5. [facility] Subjective: Patient wanted to know if staff are videotaping her in her room. She also thinks staff are recording her phone conversations. Her MOC told CC today that she had secretly recorded patient at home to have proof how aggressive and erratic patient can be outside hospital. [facility] reports patient was yelling and screaming at her and destroying property in her own home. [facility] says she doesn't think patient is safe to be around her 3 yo daughter. SUZETTE and encouraged [facility] to share her concerns with CPS. [facility] reports she had been contacted by CPS wreath and garland maker hand after report was made by inpatient staff during patient's prior hospitalization. [facility] says she doesn't want to "say anything bad" about her daughter. SUZETTE and let [facility] know that she needed to be honest with CPS in order to protect her granddaughter. Objective: Vital Signs Temp Pulse Resp BP Pulse Ox 36.9 C 50 L 15 120/59 L 97 06/17/18 06:00 06/17/18 06:00 06/17/18 06:00 06/17/18 06:00 06/17/18 06:00 MSE: Affect: Flat Mood: "OK" TP: Mostly goal-directed, tangential at times TC : Denies any SI/HI, has paranoid delusions about being recorded and videotaped Perception: Denies any AH/VH Insight/Judgment: Poor - Time Spent With Patient Time Spent With Patient: 15" - Pending Discharge Pending Discharge Within 24 Hours: No Pending Discharge Within 48 Hours: No ICD10 Worksheet Patient Problems: Problems Problem Status Onset Anxiety Acute Cannabis use disorder, severe, dependence Acute Substance-induced psychotic disorder Acute Delivery normal Acute Normal labor Acute Amphetamine use disorder, severe Chronic
[2018-06-17] MEDS: OLANZapine DISINTEGR 5 MG TAB PO SCH (20:50)
--- NOTE | 2018-06-18 07:53 | SOAPPROG ---
SOAP Progress Note Assessment/Plan: Assessment: Cannabis-Induced psychosis, mood disorder. Cannabis Use Disorder, Severe. R/O Bipolar Disorder. No improvement noted (see subjective/objective note). Patient exhibits persistent inability to perform essential function due to psychotic condition: unable to appropriately attend to ADLs and unable to communicate her basic needs. Patients support system has inability to manage functional impairment at lower level of care. Patient exhibits complete inability to maintain any appropriate aspect of personal responsibility in any adult roles; notably parenting of her 3 year old daughter. Patient could benefit from continued inpatient hospitalization for safety, crisis stabilization, and medication evaluation. Plan: 1. Psychotropic medications: After reviewing options, risks, and benefits patient agrees to continue current medications. Patient agrees to increase Zyprexa Zydis to 10 mg po QHS. No other medication changes at this time as more time is needed to determine ongoing tolerability and efficacy. Plan is to continue to observe patient for response and side effects from medications, and ongoing monitoring and evaluation. 2. Review with patient informed consent and recommendations for psychotropic medication treatment listed below 3. Labs: no additional labs at this time 4. Therapy: continue milieu and group therapy 5. Further investigation including gathering information from patients relatives and review of past case records to inform treatment plan. 6. Safety/Wellness plan and follow-up outpatient appointments to be established prior to discharge. Next steps are for patient to meet with health care analyst to plan a safe discharge plan and establish outpatient services for ongoing treatment. 7. Confer with inpatient treatment team regarding treatment plan. 8. Psychosocial stressors addressed through porter sample case 9. Legal status: [facility] 10. Consider discharge tomorrow if patient is in stable condition, safe, and has a safe discharge plan. PSYCHOTROPIC MEDICATION TREATMENT INFORMED CONSENT and RECOMMENDATIONS: Review nature of condition, diagnosis, and prognosis. Review nature and purpose of psychotropic medication treatment. Review type of psychotropic medications being ordered. Review risk and benefits of psychotropic medication treatment. Review probable length of time patient will need to take medications. Review risk and benefits of not undergoing psychotropic medication treatment. Review alternative treatments to psychotropic medications. Review psychotropic medications contraindications, drug-drug interactions, side effects, and importance of reporting any side effects to a psychiatric provider or nurse during inpatient hospitalization, and upon discharge to patients psychiatric outpatient provider, primary care provider, or other health health care analyst. Review importance of asking a nurse, psychiatric provider, or primary care provider any questions or problems concerning the psychotropic medications. Verify patient understands the information that has been provided, and understands, accepts, and agrees to psychotropic medications. Review patients safety plan and importance of patient to report to staff while hospitalized if patient is ever a danger to self/others, or unable to care for self, and upon discharge, the importance for patient to contact [facility] or [facility], or go to the nearest emergency room, if patient is ever a danger to self/others, or unable to care for self. Recommend that upon discharge patient establish medication management treatment with a psychiatric provider, establishes routine therapy appointments, and follow-up with primary care provider. Verify patient understands and agrees to these recommendations. 06/18/18 07:56 Subjective: Following up with patient for evaluation of psychosis and safety. Patient states, "I just want to know why you want to meet with me. 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 Feel like I am being watched here." Patient reports no side effects from current medications, and agrees to continue current medications. Patient agrees to increase Zyprexa Zydis to 10 mg po QHS. Objective: Vital Signs Temp Pulse Resp BP Pulse Ox 36.7 C 70 15 125/64 H 97 06/18/18 06:00 06/18/18 06:00 06/18/18 06:00 06/18/18 06:00 06/18/18 06:00 NURSING REPORT: Consulted with nursing for update on patients progress in treatment. Nurses report patient is not engaged in treatment, is attending some groups; slept 8 hours; expresses the following psychiatric symptoms: anxious; exhibits the following psychiatric symptoms: anxious, withdrawn from social interactions, paranoid delusions regarding being video recorded; is agreeable to medications as prescribed with no report of side effects, with no s /s of EPS/akathisia, and denies SI/HI, denies A/V hallucinations, and denies delusions. MD REPORT FROM WEEKEND: MOC reports all kinds of paranoid delusions, unsafe behavior at home. Patient taking olanzapine but c/o sedation. Im concerned about safety of 3 yo daughter. MOC may need to request temporary custody. There is open CPS case. SUBSTANCE ABUSE BRIEF INTERVENTION: Brief intervention regarding the risks of cannabis abuse is provided to patient with goal to reduce the risk of harm that could result from the continued use of cannabis, with the general aim to investigate the problem, raise awareness of problem, develop a solution with the patient, recommend a specific change or activity, and motivate the patient toward change. Assess substance abuse behavior and give supportive advice about harm reduction, recommend a reduction in hazardous/at-risk consumption patterns, and facilitate referrals for additional specialized treatment with certified social workers in health care. Intermediate goal is for the patient to quit and attend outpatient substance abuse treatment. Intervention focus on intermediate goals to allow for more immediate success in the treatment process to keep the patient motivated. Review following with patient: Cannabis use risks: Short- term use: impaired short-term memory, impaired motor coordination, altered judgement, in high doses paranoia and psychosis. Long-term use addiction, diminished life satisfaction and achievement, symptoms of chronic bronchitis, and increased risk of chronic psychosis disorders if predisposition to such disorders. In withdrawal anger, aggression irritability, anxiety and nervousness, decreased appetite or weight loss, restlessness, and sleep difficulties with strange dreams. OUTPATIENT SUBSTANCE ABUSE TREATMENT: Patient referred to outpatient provider and treatment for continued treatment related to substance abuse. MSE: The patient is a well-nourished female looking stated chronological age. Attire is appropriate dress is hospital garb. Grooming status is appropriate. Ambulation is independent. Gait is normal and coordinated. Posture is normal. Eye contact is appropriate. Motor activity is appropriate with purposeful, organized, coordinated movements; with no involuntary movements. Attitude is cooperative, at times is defensive and guarded. Patient appears distracted and does not relate well to this interviewer. Language production is spontaneous. Rate is hesitant, latency of response is prolonged, with low volume. Articulation is clear, tone is soft and quiet. Patient reports mood as okay with constricted, flat and incongruent affect. Patients thought process is non- linear and illogical. Patient does not report suicidal/homicidal thoughts, ideas, or plans. Patient denies auditory, visual hallucinations. Patient reports paranoid delusions. Patient does not appear to be attending to internal stimuli. Patients attention and concentration are poor. Patient is oriented to person, place, time. Patients insight is poor. Patients judgment is poor. - Time Spent With Patient Time Spent With Patient: 15 minutes, met with patient individually. 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
--- NOTE | 2018-06-18 11:10 | ASMTCMCOM ---
CM Note CM Note Notes: Pt. reports feeling "tired". Pt. reports sleeping "off and on". Pt. reports she is currently hungry and is waiting for breakfast. Pt. reports she "went to all" groups yesterday. Pt. reports she "can't really tell" if her medications are helping. Pt. reports he met with PNP. Pt. reports not discharging today, adding PNP said "few more days". Pt. reports she wants "more of a plan". Pt. reports "nothing really going on here", adding "not helping me resolve" about her stay in the hospital. CC started to asked about SI/HI, AVH and paranoia, which pt. stated "not right now". Pt. later approached CC to get her works phone number. CC provided the phone number for pt's work website, but pt. did not believe that was the correct number and was hesitant to call. Pt. presents as alert, guarded, suspicious good eye contact, bit unkempt, and not fully cooperative. Staff report pt. sleeping 8 hours last night and being medication compliant. CC was able to move pt's appointment from today to Thursday 06/22 at 11am. Date Signed: 06/18/2018 11:10 AM Electronically Signed By:Marine Henning
[2018-06-18] MEDS: OLANZapine DISINTEGR 5 MG TAB PO SCH (20:52)
--- NOTE | 2018-06-19 08:37 | SOAPPROG ---
SOAP Progress Note Assessment/Plan: Assessment: Cannabis-Induced psychosis, mood disorder. Cannabis Use Disorder, Severe. R/O Bipolar Disorder. R/O Schizoaffective Disorder, Bipolar Type. No improvement noted (see subjective/objective note). Patient exhibits persistent inability to perform essential function due to psychotic condition: unable to appropriately attend to ADLs and unable to communicate her basic needs. Patients support system has inability to manage functional impairment at lower level of care. Patient exhibits complete inability to maintain any appropriate aspect of personal responsibility in any adult roles; notably parenting of her 3 year old daughter. Patient could benefit from continued inpatient hospitalization for safety, crisis stabilization, and medication evaluation. Plan: 1. Psychotropic medications: After reviewing options, risks, and benefits patient agrees to continue current medications. Patient agrees to increase Zyprexa Zydis to 10 mg po QHS. No other medication changes at this time as more time is needed to determine ongoing tolerability and efficacy. Plan is to continue to observe patient for response and side effects from medications, and ongoing monitoring and evaluation. 2. Review with patient informed consent and recommendations for psychotropic medication treatment listed below 3. Labs: no additional labs at this time 4. Therapy: continue milieu and group therapy 5. Further investigation including gathering information from patients relatives and review of past case records to inform treatment plan. 6. Safety/Wellness plan and follow-up outpatient appointments to be established prior to discharge. Next steps are for patient to meet with care services manager to plan a safe discharge plan and establish outpatient services for ongoing treatment. 7. Confer with inpatient treatment team regarding treatment plan. 8. Psychosocial stressors addressed through case mgr 9. Legal status: [facility] 10. Consider discharge tomorrow if patient is in stable condition, safe, and has a safe discharge plan. PSYCHOTROPIC MEDICATION TREATMENT INFORMED CONSENT and RECOMMENDATIONS: Review nature of condition, diagnosis, and prognosis. Review nature and purpose of psychotropic medication treatment. Review type of psychotropic medications being ordered. Review risk and benefits of psychotropic medication treatment. Review probable length of time patient will need to take medications. Review risk and benefits of not undergoing psychotropic medication treatment. Review alternative treatments to psychotropic medications. Review psychotropic medications contraindications, drug-drug interactions, side effects, and importance of reporting any side effects to a psychiatric provider or nurse during inpatient hospitalization, and upon discharge to patients psychiatric outpatient provider, primary care provider, or other health health careers instructor. Review importance of asking a nurse, psychiatric provider, or primary care provider any questions or problems concerning the psychotropic medications. Verify patient understands the information that has been provided, and understands, accepts, and agrees to psychotropic medications. Review patients safety plan and importance of patient to report to staff while hospitalized if patient is ever a danger to self/others, or unable to care for self, and upon discharge, the importance for patient to contact [place] [facility] or [facility], or go to the nearest emergency room, if patient is ever a danger to self/others, or unable to care for self. Recommend that upon discharge patient establish medication management treatment with a psychiatric provider, establishes routine therapy appointments, and follow-up with primary care provider. Verify patient understands and agrees to these recommendations. 06/19/18 08:37 Subjective: Following up with patient for evaluation of psychosis and safety. Patient states, "I am doing okay, just tired." Patient reports no side effects from current medications, and agrees to continue current medications. Patient reports "impulsivity" prior to hospitalization as "probably from using Ritalin, Ativan, weed, and meth." Patient agrees to meet with her mother and this TOOLROOM MACHINIST for family meeting. Objective: Vital Signs Temp Pulse Resp BP Pulse Ox 36.2 C 53 L 15 116/64 98 06/19/18 06:00 06/19/18 06:00 06/19/18 06:00 06/19/18 06:00 06/19/18 06:00 NURSING REPORT: Consulted with nursing for update on patients progress in treatment. Nurses report patient is not engaged in treatment, is attending some groups; slept 8 hours; expresses the following psychiatric symptoms: anxious; exhibits the following psychiatric symptoms: anxious, withdrawn from social interactions, paranoid delusions regarding being video recorded; is agreeable to medications as prescribed with no report of side effects, with no s /s of EPS/akathisia, and denies SI/HI, denies A/V hallucinations, and denies delusions. MD REPORT FROM WEEKEND: MOC reports all kinds of paranoid delusions, unsafe behavior at home. Patient taking olanzapine but c/o sedation. Im concerned about safety of 3 yo daughter. MOC may need to request temporary custody. There is open CPS case. SUBSTANCE ABUSE BRIEF INTERVENTION: Brief intervention regarding the risks of cannabis abuse is provided to patient with goal to reduce the risk of harm that could result from the continued use of cannabis, with the general aim to investigate the problem, raise awareness of problem, develop a solution with the patient, recommend a specific change or activity, and motivate the patient toward change. Assess substance abuse behavior and give supportive advice about harm reduction, recommend a reduction in hazardous/at-risk consumption patterns, and facilitate referrals for additional specialized treatment with career transition specialist. Intermediate goal is for the patient to quit and attend outpatient substance abuse treatment. Intervention focus on intermediate goals to allow for more immediate success in the treatment process to keep the patient motivated. Review following with patient: Cannabis use risks: Short- term use: impaired short-term memory, impaired motor coordination, altered judgement, in high doses paranoia and psychosis. Long-term use addiction, diminished life satisfaction and achievement, symptoms of chronic bronchitis, and increased risk of chronic psychosis disorders if predisposition to such disorders. In withdrawal anger, aggression irritability, anxiety and nervousness, decreased appetite or weight loss, restlessness, and sleep difficulties with strange dreams. OUTPATIENT SUBSTANCE ABUSE TREATMENT: Patient referred to outpatient provider and treatment for continued treatment related to substance abuse. FAMILY MEETING: This TOOLROOM MACHINIST scheduled family meeting with MOC at 1100 on Monday; patient agrees to meet with this TOOLROOM MACHINIST and MOC to discuss treatment plan, goals for hospitalization, and discharge plan. MSE: The patient is a well-nourished female looking stated chronological age. Attire is appropriate dress is hospital garb. Grooming status is appropriate. Ambulation is independent. Gait is normal and coordinated. Posture is normal. Eye contact is appropriate. Motor activity is appropriate with purposeful, organized, coordinated movements; with no involuntary movements. Attitude is cooperative, at times is defensive and guarded. Patient appears distracted and does not relate well to this interviewer. Language production is spontaneous. Rate is hesitant, latency of response is prolonged, with low volume. Articulation is clear, tone is soft and quiet. Patient reports mood as okay with constricted, flat and incongruent affect. Patients thought process is non- linear and illogical. Patient does not report suicidal/homicidal thoughts, ideas, or plans. Patient denies auditory, visual hallucinations. Patient reports paranoid delusions. Patient does not appear to be attending to internal stimuli. Patients attention and concentration are poor. Patient is oriented to person, place, time. Patients insight is poor. Patients judgment is poor. - Time Spent With Patient Time Spent With Patient: 15 minutes, met with patient individually. 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
--- NOTE | 2018-06-19 11:23 | ASMTCMCOM ---
CM Note CM Note Notes: Client participated in treatment team meeting today. Client appears as non alert, guarded affect, limited to no insight towards any mental health or substance abuse issues. Client is "unsure of what help," she needs (post hospitalization) in order to be successful etc. Family meeting scheduled for tomorrow with MOC and possible discharge to out-patient apts set for Monday.* Date Signed: 06/19/2018 11:23 AM Electronically Signed By:Hermelindo Bruner
[2018-06-19] MEDS: OLANZapine DISINTEGR 5 MG TAB PO SCH (20:26)
--- NOTE | 2018-06-20 07:53 | SOAPPROG ---
SOAP Progress Note Assessment/Plan: Assessment: Cannabis-Induced psychosis, mood disorder. Cannabis Use Disorder, Severe. R/O Bipolar Disorder. R/O Schizoaffective Disorder, Bipolar Type. No improvement noted (see subjective/objective note). Patient exhibits persistent inability to perform essential function due to psychotic condition. Patients support system has inability to manage functional impairment at lower level of care. Patient exhibits complete inability to maintain any appropriate aspect of personal responsibility in any adult roles; notably parenting of her 3 year old daughter. Patient could benefit from continued inpatient hospitalization for safety, crisis stabilization, and medication evaluation. Plan: 1. Psychotropic medications: After reviewing options, risks, and benefits patient agrees to continue current medications. No medication changes at this time as more time is needed to determine ongoing tolerability and efficacy. Plan is to continue to observe patient for response and side effects from medications, and ongoing monitoring and evaluation. 2. Review with patient informed consent and recommendations for psychotropic medication treatment listed below 3. Labs: no additional labs at this time 4. Therapy: continue milieu and group therapy 5. Further investigation including gathering information from patients relatives and review of past case records to inform treatment plan. 6. Safety/Wellness plan and follow-up outpatient appointments to be established prior to discharge. Next steps are for patient to meet with floor care technician to plan a safe discharge plan and establish outpatient services for ongoing treatment. 7. Confer with inpatient treatment team regarding treatment plan. 8. Psychosocial stressors addressed through child welfare caseworker 9. Legal status: [facility] 10. Consider discharge tomorrow if patient is in stable condition, safe, and has a safe discharge plan. PSYCHOTROPIC MEDICATION TREATMENT INFORMED CONSENT and RECOMMENDATIONS: Review nature of condition, diagnosis, and prognosis. Review nature and purpose of psychotropic medication treatment. Review type of psychotropic medications being ordered. Review risk and benefits of psychotropic medication treatment. Review probable length of time patient will need to take medications. Review risk and benefits of not undergoing psychotropic medication treatment. Review alternative treatments to psychotropic medications. Review psychotropic medications contraindications, drug-drug interactions, side effects, and importance of reporting any side effects to a psychiatric provider or nurse during inpatient hospitalization, and upon discharge to patients psychiatric outpatient provider, primary care provider, or other health prompt care rn. Review importance of asking a nurse, psychiatric provider, or primary care provider any questions or problems concerning the psychotropic medications. Verify patient understands the information that has been provided, and understands, accepts, and agrees to psychotropic medications. Review patients safety plan and importance of patient to report to staff while hospitalized if patient is ever a danger to self/others, or unable to care for self, and upon discharge, the importance for patient to contact [facility] or [facility], or go to the nearest emergency room, if patient is ever a danger to self/others, or unable to care for self. Recommend that upon discharge patient establish medication management treatment with a psychiatric provider, establishes routine therapy appointments, and follow-up with primary care provider. Verify patient understands and agrees to these recommendations. 06/20/18 07:56 Subjective: Following up with patient for evaluation of psychosis and safety. Patient states, "I am doing okay." Patient reports no side effects from current medications, and agrees to continue current medications. Patient agrees to follow-up for outpatient substance abuse treatment following discharge. Objective: Vital Signs Temp Pulse Resp BP Pulse Ox 37 C 72 14 123/69 H 95 06/20/18 06:00 06/20/18 06:00 06/20/18 06:00 06/20/18 06:00 06/20/18 06:00 NURSING REPORT: Consulted with nursing for update on patients progress in treatment. Nurses report patient is not engaged in treatment, is attending some groups; slept 8 hours; expresses the following psychiatric symptoms: anxious; exhibits the following psychiatric symptoms: anxious, withdrawn from social interactions; is agreeable to medications as prescribed with no report of side effects, with no s/s of EPS/akathisia, and denies SI/HI, denies A/V hallucinations, and denies delusions. MD REPORT FROM WEEKEND: MOC reports all kinds of paranoid delusions, unsafe behavior at home. Patient taking olanzapine but c/o sedation. Im concerned about safety of 3 yo daughter. MOC may need to request temporary custody. There is open CPS case. SUBSTANCE ABUSE BRIEF INTERVENTION: Brief intervention regarding the risks of cannabis abuse is provided to patient with goal to reduce the risk of harm that could result from the continued use of cannabis, with the general aim to investigate the problem, raise awareness of problem, develop a solution with the patient, recommend a specific change or activity, and motivate the patient toward change. Assess substance abuse behavior and give supportive advice about harm reduction, recommend a reduction in hazardous/at-risk consumption patterns, and facilitate referrals for additional specialized treatment with healthcare administration intern. Intermediate goal is for the patient to quit and attend outpatient substance abuse treatment. Intervention focus on intermediate goals to allow for more immediate success in the treatment process to keep the patient motivated. Review following with patient: Cannabis use risks: Short- term use: impaired short-term memory, impaired motor coordination, altered judgement, in high doses paranoia and psychosis. Long-term use addiction, diminished life satisfaction and achievement, symptoms of chronic bronchitis, and increased risk of chronic psychosis disorders if predisposition to such disorders. In withdrawal anger, aggression irritability, anxiety and nervousness, decreased appetite or weight loss, restlessness, and sleep difficulties with strange dreams. OUTPATIENT SUBSTANCE ABUSE TREATMENT: Patient referred to outpatient provider and treatment for continued treatment related to substance abuse. MSE: The patient is a well-nourished female looking stated chronological age. Attire is appropriate dress is hospital garb. Grooming status is appropriate. Ambulation is independent. Gait is normal and coordinated. Posture is normal. Eye contact is appropriate. Motor activity is appropriate with purposeful, organized, coordinated movements; with no involuntary movements. Attitude is cooperative, at times is defensive and guarded. Patient appears distracted and does not relate well to this interviewer. Language production is spontaneous. Rate is hesitant, latency of response is prolonged, with low volume. Articulation is clear, tone is soft and quiet. Patient reports mood as okay with constricted, flat and incongruent affect. Patients thought process is non- linear and illogical. Patient does not report suicidal/homicidal thoughts, ideas, or plans. Patient denies auditory, visual hallucinations. Patient reports paranoid delusions. Patient does not appear to be attending to internal stimuli. Patients attention and concentration are poor. Patient is oriented to person, place, time. Patients insight is poor. Patients judgment is poor. - Time Spent With Patient Time Spent With Patient: 15 minutes, met with patient individually. 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
[2018-06-20] MEDS: OLANZapine DISINTEGR 5 MG TAB PO SCH (20:08)
--- NOTE | 2018-06-21 08:06 | SOAPPROG ---
SOAP Progress Note Assessment/Plan: Assessment: Bipolar Disorder, Most Recent Episode Depressed, with Anxious Distress. Cannabis Use Disorder, Severe. Improvement noted (see subjective/objective note ). Patient has improved since time of admission. Consider discharge tomorrow if patient is stable and safe discharge plan. Plan: 1. Psychotropic medications: After reviewing options, risks, and benefits patient agrees to continue current medications. No medication changes at this time as more time is needed to determine ongoing tolerability and efficacy. Plan is to continue to observe patient for response and side effects from medications, and ongoing monitoring and evaluation. 2. Review with patient informed consent and recommendations for psychotropic medication treatment listed below 3. Labs: no additional labs at this time 4. Therapy: continue milieu and group therapy 5. Further investigation including gathering information from patients relatives and review of past case records to inform treatment plan. 6. Safety/Wellness plan and follow-up outpatient appointments to be established prior to discharge. Next steps are for patient to meet with rn managed care to plan a safe discharge plan and establish outpatient services for ongoing treatment. 7. Confer with inpatient treatment team regarding treatment plan. 8. Psychosocial stressors addressed through field case manager 9. Legal status: [facility] 10. Consider discharge tomorrow if patient is in stable condition, safe, and has a safe discharge plan. PSYCHOTROPIC MEDICATION TREATMENT INFORMED CONSENT and RECOMMENDATIONS: Review nature of condition, diagnosis, and prognosis. Review nature and purpose of psychotropic medication treatment. Review type of psychotropic medications being ordered. Review risk and benefits of psychotropic medication treatment. Review probable length of time patient will need to take medications. Review risk and benefits of not undergoing psychotropic medication treatment. Review alternative treatments to psychotropic medications. Review psychotropic medications contraindications, drug-drug interactions, side effects, and importance of reporting any side effects to a psychiatric provider or nurse during inpatient hospitalization, and upon discharge to patients psychiatric outpatient provider, primary care provider, or other health care asst. Review importance of asking a nurse, psychiatric provider, or primary care provider any questions or problems concerning the psychotropic medications. Verify patient understands the information that has been provided, and understands, accepts, and agrees to psychotropic medications. Review patients safety plan and importance of patient to report to staff while hospitalized if patient is ever a danger to self/others, or unable to care for self, and upon discharge, the importance for patient to contact [facility] or [facility], or go to the nearest emergency room, if patient is ever a danger to self/others, or unable to care for self. Recommend that upon discharge patient establish medication management treatment with a psychiatric provider, establishes routine therapy appointments, and follow-up with primary care provider. Verify patient understands and agrees to these recommendations. 06/21/18 08:06 Subjective: Following up with patient for evaluation of psychosis and safety. Patient states, "Doing good, just ready to get out of here, not much to do in here." Patient reports no side effects from current medications, and agrees to continue current medications. Patient reports feeling safe on the unit. Patient agrees to follow-up for outpatient substance abuse treatment following discharge. Patient agrees to meet with this MACHINIST HELPER MARINE and her mother prior to discharge. With regard to discharge patient states, "I am ready to discharge, just want to make sure supports are in place like psychiatrist and therapist. I think I already have an appointment set with my therapist, just need one set with psychiatrist." Objective: Vital Signs Temp Pulse Resp BP Pulse Ox 36.7 C 56 L 14 115/58 L 98 06/21/18 06:00 06/21/18 06:00 06/21/18 06:00 06/21/18 06:00 06/21/18 06:00 NURSING REPORT: Consulted with nursing for update on patients progress in treatment. Nurses report patient is engaged in treatment, is attending groups; slept 8 hours; expresses the following psychiatric symptoms: anxious; exhibits the following psychiatric symptoms: anxious; is agreeable to medications as prescribed with no report of side effects, with no s/s of EPS/akathisia, and denies SI/HI, denies A/V hallucinations, and denies delusions. FAMILY MEETING: This MACHINIST HELPER MARINE spoke to patients mother yesterday morning at patients request to review treatment and discharge plan. Patients mother agrees to meet with this MACHINIST HELPER MARINE and patient prior to discharge to assess patients readiness to discharge and review discharge plan. KALEN in chart. SUBSTANCE ABUSE BRIEF INTERVENTION: Brief intervention regarding the risks of cannabis abuse is provided to patient with goal to reduce the risk of harm that could result from the continued use of cannabis, with the general aim to investigate the problem, raise awareness of problem, develop a solution with the patient, recommend a specific change or activity, and motivate the patient toward change. Assess substance abuse behavior and give supportive advice about harm reduction, recommend a reduction in hazardous/at-risk consumption patterns, and facilitate referrals for additional specialized treatment with medicare nurse. Intermediate goal is for the patient to quit and attend outpatient substance abuse treatment. Intervention focus on intermediate goals to allow for more immediate success in the treatment process to keep the patient motivated. Review following with patient: Cannabis use risks: Short- term use: impaired short-term memory, impaired motor coordination, altered judgement, in high doses paranoia and psychosis. Long-term use addiction, diminished life satisfaction and achievement, symptoms of chronic bronchitis, and increased risk of chronic psychosis disorders if predisposition to such disorders. In withdrawal anger, aggression irritability, anxiety and nervousness, decreased appetite or weight loss, restlessness, and sleep difficulties with strange dreams. OUTPATIENT SUBSTANCE ABUSE TREATMENT: Patient referred to outpatient provider and treatment for continued treatment related to substance abuse. MSE: The patient is a well-nourished female looking stated chronological age. Attire is appropriate dress is hospital garb. Grooming status is appropriate. Ambulation is independent. Gait is normal and coordinated. Posture is normal. Eye contact is appropriate. Motor activity is appropriate with purposeful, organized, coordinated movements; with no involuntary movements. Attitude is cooperative. Patient appears attentive and relates well to this interviewer. Language production is spontaneous. R/R/V normal. Articulation is clear. Patient reports mood as okay with constricted, flat and incongruent affect. Patients thought process is linear and logical, with no signs of formal thought disorder. Patient does not report suicidal/homicidal thoughts, ideas, or plans. Patient denies auditory, visual hallucinations. Patient denies delusions. Patient does not appear to be attending to internal stimuli. Patients attention and concentration are fair. Patient is oriented to person, place, time. Patients insight is fair. Patients judgment is fair. - Time Spent With Patient Time Spent With Patient: 15 minutes, met with patient individually. 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
--- NOTE | 2018-06-21 11:52 | ASMTCMCOM ---
CM Note CM Note Notes: Ct. asked to meet with CC to discuss discharge plans. Ct. was unaware that she has an appointment with Dr. Velazquez at [facility] tomorrow at 11:00. She became overwhelmed because she thought that a family meeting with [facility] was planned for the same time frame. CC explained that we can move the family meeting to the morning but ct. still appeared somewhat confused. Let her know that it's very important that she keep her appointment with Dr. Velazquez. Date Signed: 06/21/2018 11:50 AM Electronically Signed By:Serena Childress
--- NOTE | 2018-06-21 18:38 | ASMTCMCOM ---
CM Note CM Note Notes: The information recorded in this note occurred on 06/20/18. The patient requested to discharged "as soon as possible." The patient plans to return to her apartment and resume custody of her child who is currently in the care of the patient's mother. The patient is a client with [facility]. She denied interest in a sober living facility. Date Signed: 06/21/2018 06:37 PM Electronically Signed By:Vicky Sharma
[2018-06-21] MEDS: OLANZapine DISINTEGR 5 MG TAB PO SCH (20:33)
[2018-06-22 06:57] VITALS: BP 108/62
--- NOTE | 2018-06-22 07:44 | BDS ---
[f rep st] BEHAVIORAL HEALTH DISCHARGE SUMMARY REASON FOR ADMISSION: From the ED note dated 06/13/2018, patient presented to the emergency department stating she was feeling very anxious. Patient's toxicology screen at time of admission was non-negative for THC. Patient also reported use of methamphetamine, reported the abuse of Ativan and also the abuse of Ritalin. The patient has a history of bipolar disorder, likely complicated by substance use. Patient was admitted involuntarily and on an M1 hold due to being gravely disabled due to a mental illness. Patient was admitted for safety, crisis stabilization and medication evaluation. ADMITTING DIAGNOSES: 1. Bipolar II disorder, severe, depressed, with anxious distress. 2. 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 3. 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 4. Cannabis use disorder, severe dependence. ADMISSION PHYSICAL EXAM: Patient was evaluated in the emergency department on 06/13/2018. Patient was medically cleared for inpatient psychiatric hospitalization and treatment. Patient was recently seen on 06/08/2018, during a prior hospitalization for an H and P consultation. For further details, please refer to consultation document dated 06/08/2018. ADMISSION LABS: 1. CBC within normal limits, except white blood cells were elevated at 11.30, hematocrit was elevated at 47.8, MPV was elevated at 12.2, neutrophils were elevated at 75.1, eosinophils were low at 0.4, absolute neutrophils were elevated at 8.49, absolute monocytes were elevated at 0.84. 2. BMP within normal limits. 3. Hemoglobin A1c within normal limits at 5.2. 4. Lipid panel within normal limits, except cholesterol low at 107, cholesterol risk factor elevated at 1.4, LDL risk factor elevated at 1.2, non- HDL cholesterol low at 85, HDL cholesterol low at 22, LDL back/HDL ratio was elevated at 3.36, cholesterol/HDL ratio was elevated at 4.86. 5. Beta hCG qualitative test was negative. 6. Toxicology screen: Non-negative for THC, negative for the other substances screened and negative for ethyl alcohol. MAJOR PROCEDURES OR TESTS: None. HOSPITAL COURSE: The most prominent symptoms and behaviors while the patient was here were reports of severe anxiety and depression. Treatment modalities utilized were milieu and group therapy. Zyprexa 5 mg p.o. q.h.s. was continued and titrated to 10 mg p.o. q.h.s. to target mood symptoms, was tolerated with no report of side effects and with good response. Patient has improved considerably with no signs of psychiatric symptoms and no psychiatric symptoms expressed. Patient reports she has improved since admission, states to be in stable condition, feels safe to discharge, and she contracts for safety. Patients response to treatment was good. There were no adverse or unexpected results of treatment. The patient was safe throughout stay, active in treatment , engaged in groups, and was appropriate with staff. Patient met with treatment team prior to discharge to assess readiness to discharge and review discharge plan. The treatment team consensus is the patient in stable condition , has a safe discharge plan, and is ready to discharge today. CONDITION ON DISCHARGE: Patient is in stable condition and is no longer a danger to self or others, and is not gravely disabled due to mental illness. Patient is no longer in need of inpatient level of care, and can be safely and effectively treated within the community. The patients level of risk at time of discharge is low. MSE: The patient is casually dressed and with good hygiene , and looks stated age. Patient is sitting, posture is upright, and position is relaxed. Patient appears awake, alert, and responds appropriately and reasonably during interview. Patient is engaged, relates well to interviewer, and emotional facial expression is appropriate to situation and changes appropriately with topic. Patient is cooperative, makes comfortable eye contact , and movements are voluntary, deliberate, coordinated, and smooth and even with no inappropriate movements. Patient makes laryngeal sounds effortlessly and shares conversation appropriately; pace of conversation is appropriate, and stream of talking is fluent; articulation is clear and understandable; word choice is effortless and appropriate for education level; completes sentences, occasionally pausing to think; rate and volume are appropriate for interview and setting. Patient reports mood as euthymic. Patients affect is stable with full variable range, congruent with mood, and appropriate to speech and circumstances. Patient has linear and logical thinking, with no loose associations, tangential thought, thought blocking, concrete thinking, or any other signs of formal thought disorder. Patient denies suicidal and homicidal ideation, and denies hallucinations and delusions. Patient appears to be a reliable historian with sound judgement and good insight into current condition. Patient has no apparent dysfunction in recent or remote memory noted , and no evidence of gross cognitive dysfunction noted at any point during the interview. DISCHARGE DIAGNOSES: 1. Bipolar II disorder, severe, depressed, with anxious distress. 2. 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 3. 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 4. Cannabis use disorder, severe dependence. CURRENT MEDICATIONS: After reviewing options, risks and benefits with the patient, patient agrees to continue: Zyprexa 10 mg p.o. q.h.s. Patient requests prescription for this medication at time of discharge. A prescription for 30 days is provided. The prescription is reviewed with the patient at time of discharge to ensure accuracy and patient understanding. DISPOSITION: Patient left hospital independently and voluntarily with our career placement specialist to walk patient to her outpatient appointment at [facility]. Patient then plans to return to her mother's home. FOLLOWUP: recruiter coordinator reports the appropriate outpatient follow-up services have been established and outpatient appointments have been scheduled. The patient received written instructions with times and dates of outpatient follow-up appointments. The following follow-up recommendations were provided to the patient at discharge: Continue psychotropic medications as prescribed and attend appointments as scheduled. Report any side effects to a psychiatric outpatient provider, a primary care provider, or other health client care representative. Address any questions or problems concerning the psychotropic medications with a psychiatric outpatient provider, a primary care provider, or other health client care representative. Contact [facility] or [facility], or go to the nearest emergency room, if you are ever a danger to yourself/others, or unable to care for yourself. As soon as possible, establish a routine medication management treatment with a psychiatric provider, establish routine therapy appointments, and follow-up with a primary care provider. SUBSTANCE ABUSE BRIEF INTERVENTION: Brief intervention regarding the risks of cannabis abuse is provided to patient with goal to reduce the risk of harm that could result from the continued use of cannabis, with the general aim to investigate the problem, raise awareness of problem, develop a solution with the patient, recommend a specific change or activity, and motivate the patient toward change. Assess substance abuse behavior and give supportive advice about harm reduction, recommend a reduction in hazardous/at-risk consumption patterns, and facilitate referrals for additional specialized treatment with career placement specialist. Intermediate goal is for the patient to quit and attend outpatient substance abuse treatment. Intervention focus on intermediate goals to allow for more immediate success in the treatment process to keep the patient motivated. Review following with patient: Cannabis use risks: Short- term use: impaired short-term memory, impaired motor coordination, altered judgement, in high doses paranoia and psychosis. Long-term use addiction, diminished life satisfaction and achievement, symptoms of chronic bronchitis, and increased risk of chronic psychosis disorders if predisposition to such disorders. In withdrawal anger, aggression irritability, anxiety and nervousness, decreased appetite or weight loss, restlessness, and sleep difficulties with strange dreams. OUTPATIENT SUBSTANCE ABUSE TREATMENT: Patient referred to outpatient provider and treatment for continued treatment related to substance abuse. LEGAL COURSE: Patient was admitted involuntarily on an M1 hold for inpatient psychiatric hospitalization. Patient was then placed on a short-term certification. Patient discharged today independently and voluntarily and at time of discharge, short-term certification was terminated. ATTITUDE AT TIME OF DISCHARGE: The patients attitude was positive at time of discharge, and patient reports looking forward to discharging today. The patient reports she feels safe to discharge, is no longer a danger to herself or others, is in stable condition, and contracts for safety. Patient states she will continue medications as prescribed, and establish medication management treatment with an outpatient provider after discharge. Patient reports she understands the information that has been provided to her, and she understands, accepts, and agrees to psychotropic medications. Patient describes internal protective factors as the coping skills she has learned while hospitalized here, and she plans to continue to practice these coping skills after discharge. FAMILY MEETING: This GRAPHIC ENGINEER and patient had a family meeting with patient's mother at patient and patient's mother at time of discharge. Patient's mother to support patient in her ongoing treatment and plans to meet patient at her follow -up appointment today at [facility] at 1100. LABS AND RADIOLOGY STUDIES: There were no pending labs or studies at time of discharge. ADVANCE DIRECTIVES: There were no advance directives on file, and patient was Full Code during this hospitalization. The following psychotropic medication treatment informed consent and recommendations were provided to the patient at time of discharge. Patient reports she understands, accepts, and agrees to the information that has been provided. PSYCHOTROPIC MEDICATION TREATMENT INFORMED CONSENT and RECOMMENDATIONS: Review nature of condition, diagnosis, and prognosis. Review nature and purpose of psychotropic medication treatment. Review type of psychotropic medications being prescribed. Review risk and benefits of psychotropic medication treatment. Review probable length of time will need to take medications. Review risk and benefits of not undergoing psychotropic medication treatment. Review alternative treatments to psychotropic medications. Review psychotropic medications contraindications, side effects, and importance of reporting any side effects to a psychiatric provider, primary care provider, or other health client care representative. Review importance of her asking a psychiatric provider or primary care provider any questions or problems concerning the psychotropic medications. Review importance of reporting to a psychiatric provider, primary care provider, or other health client care representative if she plans to or becomes . Review safety plan and the importance to contact [facility] or [facility] , or go to the nearest emergency room, if ever a danger to yourself/others, or unable to care for yourself. Recommend upon discharge to establish routine medication management treatment with a psychiatric provider, establish routine therapy appointments, and follow-up with a primary care provider. Verify patient understands, accepts, and agrees to the information that has been provided. /[id number]
== END 2018-06-22 11:00 | disposition home or self-care (01) | DRG 885 ==
LOC: BBEH 23:22
PROVIDERS: ADMIT Psychiatry & Neurology Psychiatry; ATTEND Psychiatry & Neurology Psychiatry
DX: F31.81 Bipolar II disorder (principal); F12.280 Cannabis dependence with cannabis-induced anxiety disorder; F12.259 Cannabis dependence with psychotic disorder, unspecified; F17.200 Nicotine dependence, unspecified, uncomplicated
CPT/HCPCS: 80305; G0480

== ENCOUNTER 2018-08-23 12:10 | Inpatient (IN) | payer OTHER, MEDICAID | END 2018-09-13 15:20 | disposition home or self-care (01) | LOC: BBEH 09-03 11:56 ==